=== PATIENT | male | born 1980 | race Caucasian/White ===

== ENCOUNTER 2023-02-23 10:32 | Emergency (ER) | payer OTHER, SELFPAY ==
[2023-02-23 10:36] VITALS: BP 145/98; PULSE 65; RESP 16; TEMP 36.8; O2SAT 98; BMI 31.9
[2023-02-23 10:51] VITALS: RESP 14
--- NOTE | 2023-02-23 11:14 | XRR_ITS ---
PROCEDURE INFORMATION: Exam: XR Right Hip Exam date and time: 02/23/2023 11:19 AM Age: 42 years old Clinical indication: Hip pain; Right hip; Additional info: Right hip pain TECHNIQUE: Imaging protocol: Radiologic exam of the right hip. Views: 2 or 3 views hip with pelvis when performed. COMPARISON: [email or web address] [id number] 09/28/2019 5:35 PM FINDINGS: Bones/joints: Femoroacetabular alignment is normal. Joint space is preserved. No fracture. No osteophytes. The visible portion of pelvis and sacrum is intact. Sacralization of L5 is partially imaged. Soft tissues: Visible soft tissues are unremarkable. XR/XR hip RT 2-3V wo/w pel* [id number] IMPRESSION: 1. Normal right hip. 2. Partial sacralization of L5.
--- NOTE | 2023-02-23 11:14 | W.ED.EXTPRO ---
HPI - Extremity Problem General: Chief complaint: Extremity Injury, Lower Stated complaint: Right leg pain for a month Time Seen by Provider: 02/23/23 10:37 History of Present Illness: Patient is a 42-year-old male comes to the ED with right hip pain. Patient says symptoms started approximately 1 month ago. he was working on his house and jumped down from the roof of his house to the bed of his truck which was about 4 feet. He did that several times that day and after that he was having some pain in his right hip. It continued to progress for the past couple weeks and did not go away. Denies any other injury or trauma. Pain is mild when at rest but worsens with weightbearing. Associated symptoms: Deny chest pain, fever(s) or rash Review of Systems Const: Denies: fever(s), chills or fatigue Eyes: Denies: change in vision or eye discomfort ENMT: Denies: throat pain, odynophagia, nasal discharge or nasal congestion Card: Denies: chest pain, palpitations, edema, swelling of feet/ankles, dyspnea on exertion or orthopnea Resp: Denies: dyspnea, productive cough or non-productive cough GI: Denies: abdominal pain, nausea, vomiting, diarrhea, constipation or hematochezia : Denies: flank pain, difficulty urinating, dysuria or hematuria Musc: Reports: extremity pain (Right hip pain); Denies: neck pain, back pain or extremity swelling Skin/Breast: Denies: rash or new lesions Neuro: Denies: headache(s), numbness in extremities or weakness in extremities Physical Exam Const: COMMON NORMALS: no acute distress, patient oriented x3, healthy appearing and alert HENMT: COMMON NORMALS: normocephalic HEAD & SCALP: normocephalic MOUTH: Normal oral and palatal mucosa present THROAT: posterior oropharynx normal and uvula midline Neck/C-Spine: COMMON NORMALS: supple GENERAL: Yes normal visual inspection Resp: COMMON NORMALS: normal respiratory effort, No retractions, No use of accessory muscles and clear to auscultation bilaterally AUSCULTATION: clear to auscultation bilaterally Cardio: COMMON NORMALS: regular rate, regular rhythm, S1 normal heart sound present, S2 normal heart sound present, No gallops present (Cardio), No clicks present (Cardio), No murmurs present (Cardio) and Peripheral pulses 2+ throughout RATE: regular rate RHYTHM: regular rhythm HEART SOUNDS: S1 normal heart sound present and S2 normal heart sound present PERIPHERAL PULSES: Peripheral pulses 2+ throughout GI: COMMON NORMALS: Normal to inspection, nondistended, normoactive bowel sounds present, Soft to palpation, non-tender and no masses PALPATION: Yes Soft to palpation : COMMON NORMALS: Yes no CVA tenderness BLADDER/KIDNEY EXAM: Yes no CVA tenderness Back/Pelvis: COMMON NORMALS: no CVA tenderness Extremity: COMMON NORMALS: normal to inspection Neuro: COMMON NORMALS: patient oriented x3 SENSORIUM/ORIENTATION: Yes alert GAIT: Yes Normal gait present Skin: GENERAL SKIN EXAM: dry skin Course Vital Signs: Vital signs: Vital Signs Temperature 98.2 F 02/23/23 10:36 Pulse Rate 68 02/23/23 12:48 Respiratory Rate 14 02/23/23 12:48 Blood Pressure 145/98 02/23/23 10:36 Pulse Oximetry 98 02/23/23 12:48 Oxygen Delivery Me thod Room Air 02/23/23 10:36 MDM - Extremity (Nontraumatic) Medical Decision Making Patient is a 42-year-old male comes to the ED with right hip pain. Patient says symptoms started approximately 1 month ago. he was working on his house and jumped down from the roof of his house to the bed of his truck which was about 4 feet. He did that several times that day and after that he was having some pain in his right hip. It continued to progress for the past couple weeks and did not go away. Denies any other injury or trauma. Pain is mild when at rest but worsens with weightbearing. Vitals are stable. Exam of patient is benign. X-ray of right hip shows no acute fractures or findings. Patient was stable for discharge home and diagnosed with right leg pain. Sent with a prescription for muscle relaxer and NSAID. Follow-up with PCP in the next week for reevaluation. Return to ED precautions given. Patient understood and agreed with plan. Lab Data Radiology Impressions Hip/Pelvis X-Ray 02/23/23 11:14 IMPRESSION: 1. Normal right hip. 2. Partial sacralization of L5. Discharge Plan Discharge Patient Disposition: Home Clinical Impression: Pain of right leg Condition: Stable Prescriptions: New ibuprofen 800 mg tablet 800 mg PO Q8H PRN (Reason: pain) Qty: 30 0RF cyclobenzaprine 10 mg tablet 10 mg PO BID PRN (Reason: muscle spasm) Qty: 20 0RF Discharge Orders: Discharge ED (Routine); Ordered 02/23/23 Ordered By: Sandeep Goss Referrals: Sparkle Pritchard FNP [Primary Care Provider] - Discharge Diet: Regular Discharge Activity: Increase activity as tolerated Activity Restrictions/Additional Instructions: Follow-up with medical provider as directed in the next 5 to 7 days for reevaluation. Continue to rest, ice elevate leg to help with symptoms. Take medications as prescribed. Return to the ER or your medical provider if condition worsens. Please read and understand discharge instructions. Thank you for choosing [facility] for your healthcare needs today. Please realize this is an emergency room and that we are providing you with a medical screening exam and this may not be complete and all inclusive of all the testing and or work up that you may need to determine your ailment or severity of your illness. It is very important that you follow up as instructed or that you return to the Emergency Department should you have concerns or if your condition changes or worsens in any way. Coding Level of Care Code ED [employer] for Andrei Munoz
[2023-02-23 12:48] VITALS: PULSE 68; RESP 14; O2SAT 98
== END 2023-02-23 12:49 | disposition home or self-care (01) ==
PROVIDERS: Emergency Provider Physician Assistant; PCP Nurse Practitioner
DX: M79.604 Pain in right leg (principal)
CPT/HCPCS: 73502; 99283